=== PATIENT | female | born 1990 | race African-American/Black ===

== ENCOUNTER 2016-11-03 10:11 | Observation (INO) | payer MEDICAID ==
[~2016-11-03] VITALS: Ht 182.9 cm; Wt 131.5 kg
[2016-11-03] MEDS ORDERED: SERT100T PO (11:25)
[2016-11-03] MEDS ORDERED: PNV1TABL76 PO (11:25)
[2016-11-03] MEDS ORDERED: TRAZ150T79 PO (11:25)
== END 2016-11-03 13:15 | disposition home or self-care (01) ==
LOC: L&D 10:11
PROVIDERS: ADMIT Obstetrics & Gynecology; ATTEND Obstetrics & Gynecology
DX: O42.913 Preterm premature rupture of membranes, unspecified as to length of time between rupture and onset of labor, third trimester (principal); Z3A.36 36 weeks gestation of pregnancy
CPT/HCPCS: 76805; 76818; 99281; G0378

== ENCOUNTER 2016-11-28 18:50 | Observation (INO) | payer OTHER ==
[~2016-11-28] VITALS: Ht 182.9 cm; Wt 131.5 kg
[~2016-11-28 18:50] MED LIST: PNV1TABL76 PO; SERT100T PO; TRAZ150T79 PO
== END 2016-11-28 20:00 | disposition home or self-care (01) ==
LOC: L&D 18:50
PROVIDERS: ADMIT Obstetrics & Gynecology; ATTEND Obstetrics & Gynecology
DX: O26.893 Other specified pregnancy related conditions, third trimester (principal); R10.9 Unspecified abdominal pain; Z3A.40 40 weeks gestation of pregnancy
CPT/HCPCS: 99281; G0378

== ENCOUNTER 2016-11-30 11:18 | Observation (INO) | payer MEDICAID, OTHER ==
[~2016-11-30] VITALS: Ht 182.9 cm; Wt 132.0 kg
[2016-11-30] MEDS ORDERED: PREN1TAB87 PO (14:00)
[2016-12-01] MEDS ORDERED: ALBU05 IH (09:43)
== END 2016-11-30 14:20 | disposition home or self-care (01) ==
LOC: L&D 11:20
PROVIDERS: ADMIT Obstetrics & Gynecology; ATTEND Obstetrics & Gynecology
DX: O26.893 Other specified pregnancy related conditions, third trimester (principal); O48.0 Post-term pregnancy; Z3A.40 40 weeks gestation of pregnancy
CPT/HCPCS: 59025; 76815; 76818; G0378

== ENCOUNTER 2016-12-01 08:48 | Inpatient (IN) | payer MEDICAID ==
[~2016-12-01] VITALS: Ht 182.9 cm; Wt 131.5 kg
[~2016-12-01 08:48] MED LIST changes: +PREN1TAB87 PO
[2016-12-01] MEDS: LACTATED RINGERS 1,000 ML IV SCH ×3 (09:19→19:12)
[2016-12-01] MEDS ORDERED: ALBU05 IH (09:43)
[2016-12-01] MEDS ORDERED: CARBOPROST TROMETHAMINE 250 MCG/ML AMPUL IM PRN (10:00)
[2016-12-01] MEDS ORDERED: NALOXONE HCL 0.4 MG/ML 1ML VIAL IM PRN (10:00)
[2016-12-01] MEDS ORDERED: METHYLERGONOVINE MALEATE 0.2 MG/ML IM PRN (10:00)
[2016-12-01 10:06] LABS: PARTIAL THROMBOPLASTIN TIME 29.5 sec (23.4-31.0); PROTHROMBIN TIME 10.4 sec (9.4-11.6)
[2016-12-01 10:11] LABS: BASOPHILS % 0.2 % (0.0-2.0); EOSINOPHILS % 0.6 % (0.0-5.0); HEMATOCRIT. 33.3 % (36.0-48.0); HEMOGLOBIN. 11.2 g/dL (12.0-16.0); LYMPHOCYTES % 18.1 % (20.0-50.0); MEAN CORPUSCULAR HEMOGLOBIN 29.4 pg (28.0-32.0); MEAN CORPUSCULAR VOLUME 87.6 fL (81.0-99.0); MEAN PLATELET VOLUME 9.4 fl (7.4-10.4); MONOCYTES % 7.2 % (2.0-8.0); NEUTROPHILS % 73.9 % (40.0-76.0); PLATELET 205 x1000/uL (130-400); RED CELL DISTRIBUTION WIDTH 15.1 % (11.6-14.6)
[2016-12-01 10:53] LABS: CLARITY URINE CLEAR (CLEAR); COLOR URINE YELLOW (YELLOW); GLUCOSE URINE NEGATIVE (NEGATIVE); KETONES URINE NEGATIVE (NEGATIVE); LEUKOCYTE ESTERASE URINE NEGATIVE (NEGATIVE); NITRITE URINE NEGATIVE (NEGATIVE); OCCULT BLOOD URINE NEGATIVE (NEGATIVE); PROTEIN URINE NEGATIVE (NEGATIVE); SPECIFIC GRAVITY URINE 1.019 (1.005-1.030); UROBILINOGEN URINE 0.2 E.U./dL (0.2-1.0)
[2016-12-01] MEDS ORDERED: MIDAZOLAM HCL 2 MG/2 ML VIAL ONE ×2 (10:53→11:34)
[2016-12-01] MEDS ORDERED: FENTANYL CITRATE/PF 50MCG/ML 2ML VIAL ONE (10:53)
[2016-12-01] MEDS ORDERED: PHENYLEPHRINE HCL 10 MG/ML 1ML (IV VIAL) IV ONE (10:58)
[2016-12-01] MEDS ORDERED: DEXAMETHASONE 4MG/ML 1ML VIAL ONE (10:58)
[2016-12-01] MEDS ORDERED: ONDANSETRON HCL 4MG/2ML VIAL ONE (10:58)
[2016-12-01] MEDS ORDERED: CEFAZOLIN SODIUM 1000MG/VIAL ONE (10:58)
[2016-12-01] MEDS ORDERED: OXYTOCIN 10 UNITS/ML 1ML ONE (10:58)
[2016-12-01] MEDS ORDERED: EPHEDRINE SULFATE 50MG/ML VIAL ONE (10:58)
[2016-12-01] MEDS ORDERED: SODIUM CHLORIDE 0.9% 10ML VIAL ONE (10:58)
[2016-12-01 11:37] LABS: *AMPHETAMINES SCREEN URINE NEGATIVE (NEGATIVE); *BARBITURATES SCREEN URINE NEGATIVE (NEGATIVE); *BENZODIAZEPINES SCREEN URINE NEGATIVE (NEGATIVE); *COCAINE SCREEN URINE NEGATIVE (NEGATIVE); CANNABINOID URINE SCREEN NEGATIVE (NEGATIVE); METHADONE URINE SCREEN NEGATIVE (NEGATIVE); OPIATES URINE SCREEN NEGATIVE (NEGATIVE); PHENCYCLIDINE URINE SCREEN NEGATIVE (NEGATIVE)
[2016-12-01 11:39] LABS: RUBELLA IGG 60.1 IU/mL (4.99-10)
[2016-12-01 11:40] LABS: HEPATITIS B SURFACE ANTIGEN NEGATIVE
[2016-12-01] MEDS ORDERED: DIPHENHYDRAMINE 50MG/ML VIAL IV PRN (12:30)
[2016-12-01] MEDS ORDERED: ONDANSETRON HCL 4MG/2ML VIAL IV PRN ×2 (12:30→14:45)
[2016-12-01] MEDS ORDERED: NALOXONE HCL 0.4 MG/ML 1ML VIAL IV PRN (12:30)
[2016-12-01] MEDS: DEXT 5%/LR + PITOCIN 20UNITS/L 1,000 ML IV SCH ×2 (13:11→14:05)
[2016-12-01] MEDS: KETOROLAC 30MG/ML VIAL IV SCH ×2 (14:00→20:47)
[2016-12-01] MEDS ORDERED: DEXT 5%/LR + PITOCIN 20UNITS/L 1,000 ML IV SCH (14:32)
[2016-12-01] MEDS ORDERED: RHO(D) IMMUNE GLOBULIN 300 MCG/SYR IM PRN (14:45)
[2016-12-01] MEDS ORDERED: LANOLIN OINT 0.25 GM TUBE TOP PRN (14:45)
[2016-12-01] MEDS ORDERED: IBUPROFEN 400MG TABLET PO PRN (14:45)
[2016-12-01 15:50] VITALS: BP 106/50
[2016-12-01] MEDS ORDERED: HYDROMORPHONE HCL/PF 2MG/ML CPJ IM NR (16:00)
[2016-12-01 20:15] VITALS: BP 104/58
[2016-12-02] VITALS: BP 105/58
[2016-12-02] MEDS: LACTATED RINGERS 1,000 ML IV SCH (02:03)
[2016-12-02] MEDS: KETOROLAC 30MG/ML VIAL IV SCH ×2 (02:10→09:53)
[2016-12-02 04:45] VITALS: BP 99/57
[2016-12-02 06:07] LABS: BASOPHILS % 0.2 % (0.0-2.0); EOSINOPHILS % 0.1 % (0.0-5.0); HEMATOCRIT. 30.1 % (36.0-48.0); MEAN CORPUSCULAR HEMOGLOBIN 29.2 pg (28.0-32.0); MEAN CORPUSCULAR VOLUME 87.7 fL (81.0-99.0); MEAN PLATELET VOLUME 9.5 fl (7.4-10.4); MONOCYTES % 6.4 % (2.0-8.0); NEUTROPHILS % 80.3 % (40.0-76.0); PLATELET 192 x1000/uL (130-400); RED BLOOD CELL COUNT 3.44 mill/uL (4.2-5.4)
[2016-12-02 08:20] VITALS: BP 114/57
[2016-12-02] MEDS: PRENATAL VIT/FE FUMARATE/FA TABLET PO SCH (09:28)
[2016-12-02] MEDS ORDERED: DEXT 5%/LACTATED RINGERS 1,000 ML IV SCH (10:00)
[2016-12-02] MEDS: IBUPROFEN 800MG TABLET PO PRN (13:43)
[2016-12-02 16:22] VITALS: BP 116/70
[2016-12-02] MEDS ORDERED: PENICILLIN G BENZATHINE 2,400,000 UNITS/4ML SYR IM NR (18:30)
[2016-12-02] MEDS: ACETAMINOPHEN WITH CODEINE 300/30MG TABLET PO PRN (19:51)
[2016-12-02 20:00] VITALS: BP 119/68
[2016-12-03] MEDS: ACETAMINOPHEN WITH CODEINE 300/30MG TABLET PO PRN ×3 (04:59→15:21)
[2016-12-03 05:26] VITALS: BP 109/70
[2016-12-03 07:30] VITALS: BP 113/75
[2016-12-03] MEDS: PRENATAL VIT/FE FUMARATE/FA TABLET PO SCH (10:21)
[2016-12-03] MEDS: IBUPROFEN 800MG TABLET PO PRN (10:21)
[2016-12-03 16:43] VITALS: BP 116/59
[2016-12-03 19:50] VITALS: BP 103/62
[2016-12-03 23:55] VITALS: BP 113/62
[2016-12-04 04:00] VITALS: BP 131/87
[2016-12-04] MEDS: PRENATAL VIT/FE FUMARATE/FA TABLET PO SCH (08:46)
== END 2016-12-04 13:45 | disposition home or self-care (01) | DRG 540 ==
LOC: L&D 08:48 → OBSVTOIN 08:48 → 7EST PP/OB 15:30
PROVIDERS: ADMIT Obstetrics & Gynecology; ATTEND Obstetrics & Gynecology
PROC: 109 Obstetrics, Pregnancy, Drainage (ICD-10-PCS; 2016-12-01)
PROC: 10D00Z1 Extraction of Products of Conception, Low, Open Approach (ICD-10-PCS; principal; 2016-12-01 11:10)
DX: O99.52 Diseases of the respiratory system complicating childbirth (principal); D62 Acute posthemorrhagic anemia; O34.211 Maternal care for low transverse scar from previous cesarean delivery; O99.344 Other mental disorders complicating childbirth; F32.9 Major depressive disorder, single episode, unspecified; O48.0 Post-term pregnancy; O99.02 Anemia complicating childbirth; J45.909 Unspecified asthma, uncomplicated; Z90.49 Acquired absence of other specified parts of digestive tract; Z79.899 Other long term (current) drug therapy; Z88.6 Allergy status to analgesic agent; Z3A.00 Weeks of gestation of pregnancy not specified; Z37.0 Single live birth
CPT/HCPCS: 36415; 80305; 81003; 85025; 85610; 85730; 86592; 86593; 86703; 86762; 86780; 86850; 86900; 87340; 88307; A4216; J0171; J0561; J0690; J1100; J1170; J1885; J2250; J2370; J2405; J2590; J3010; J7120; J7121

== ENCOUNTER 2017-03-08 11:09 | Emergency (ER) | payer MEDICAID, OTHER ==
[~2017-03-08] VITALS: Ht 182.9 cm; Wt 141.0 kg
[2017-03-08 11:44] VITALS: BP 140/84
== END 2017-03-08 16:34 | disposition left against medical advice (07) ==
LOC: ER 12:28
DX: R51 Headache (principal); M54.9 Dorsalgia, unspecified; Z53.21 Procedure and treatment not carried out due to patient leaving prior to being seen by health care provider

== ENCOUNTER 2020-11-01 12:02 | Observation (INO) | payer OTHER ==
[~2020-11-01] VITALS: Ht 182.9 cm; Wt 109.8 kg
== END 2020-11-01 15:20 | disposition home or self-care (01) ==
LOC: 8 EST LDRP 12:02
PROVIDERS: ADMIT Obstetrics & Gynecology; ATTEND Obstetrics & Gynecology
DX: O46.93 Antepartum hemorrhage, unspecified, third trimester (principal); Z3A.36 36 weeks gestation of pregnancy
CPT/HCPCS: 59025; 76805; 76818; G0378; 99281